=== PATIENT | female | born 1970 | race Caucasian/White ===

== ENCOUNTER 2025-06-06 09:54 | Emergency (ER) | payer OTHER, SELFPAY ==
[2025-06-06 09:55] VITALS: BP 180/89; PULSE 96; RESP 18; TEMP 36.9; O2SAT 100; BMI 31.8
--- NOTE | 2025-06-06 10:10 | EX.ED.UPPERE ---
HPI History of Present Illness Chief Complaint: Upper Extremity Injury Informant: patient Narrative Narrative: [id number] female here increasing right shoulder pain for the last 3 days. Initially started after shutting her barn door. She has had a history of tendinitis of the shoulder and elbow. History of quadriceps rupture bilaterally with repair followed by Dr. Espinosa. Using ibuprofen does help symptoms. However back at work noted continued symptoms and wanted it evaluated. There is no direct traumas. Prior similar symptoms: Yes PFSH PFSH Allergy/AdvReac Type Severity Reaction Status Date / Time No Known Allergies Allergy Verified 06/06/25 09:57 Social History Smoking Status: Never smoker ROS ROS ED Constitutional Constitutional ED: Denies fever(s) Cardiovascular Cardiovascular: Denies chest pain Respiratory/Chest Respiratory/Chest: Denies cough Gastrointestinal Gastrointestinal: Denies diarrhea or vomiting Musculoskeletal Musculoskeletal: Reports none and other Details: Right shoulder pain Integumentary Denies rash or wounds Neurologic Neurologic: Denies weakness EXAM Physical Exam Const Vital Signs: 06/06/25 09:55 Temperature 98.4 F Temperature Source Oral Pulse Rate 96 Respiratory Rate 18 Blood Pressure 180/89 H Blood Pressure Mean 119 Pulse Ox 100 Oxygen Delivery Method Room Air Positive well nourished and well developed General Appearance ED: well developed HEENT normocephalic and atraumatic Eyes General Eye ED: Yes normal appearance of both eyes Neck full ROM Resp normal respiratory effort and normal air movement Cardio regular rate and regular rhythm GI soft to palpation Extremity full ROM Extremity Narrative: Right upper extremity: Negative speeds test. Negative Apley's. Negative empty can. Mild pain with internal rotation against resistance. No pain with external rotation. Soft compartments. No deformities. Neuro oriented x3 Skin no rashes or lesions noted and no wounds MDM MDM MDM Narrative Medical decision making narrative: Interventions / MDM: Differential diagnosis: Rotator cuff strain Diagnosis considered but do not suspect: No clinical dislocation or concerns of fracture. My EKG interpretation: N/A Imaging independently reviewed and interpreted by myself: N/A External documents reviewed: N/A Test considered but not ordered:N/A ED course: Patient nontoxic. Exam consistent with rotator cuff strain of the subscapularis. Negative speeds test, low suspicion for tendinitis. No clinical dislocation or concerns for fracture. She is reassured. She states she will continue ibuprofen. She will follow-up with her orthopedics if needed. All questions were answered. Re-evaluation: stable Disposition discussed with patient/family/significant other: Patient Case discussed with consulting clinician: N/A This note was generated with [employer] dictation software. It may contain incorrect words, spelling, and punctuation that were not noted in checking the note before signing. Discharge Plan Triage Chief Complaint: Upper Extremity Injury ED Provider: Edin Tinsley Dx/Rx/DC Orders Clinical Impression: Strain of rotator cuff of right shoulder, Pain in right shoulder Instructions: ED Shoulder Sprain Primary Care Provider: Sarmad Guzman Activity Restrictions/Additional Instructions: Your exam consistent with rotator cuff strain of your shoulder. More specifically subscapularis. Use exercises as shown. Continue ibuprofen as needed. You may follow-up with your orthopedic team if needed. Print Language: Lao Disposition Disposition: Home, Self Care Discharge Date/Time: 06/06/25 10:30
[2025-06-06 10:21] VITALS: BP 156/90; PULSE 59; RESP 18; TEMP 36.9; O2SAT 100
== END 2025-06-06 10:30 | disposition home or self-care (01) ==
LOC: ED 10:28
PROVIDERS: Emergency Provider Emergency Medicine; PCP Family Medicine; Visit Provider Emergency Medicine
DX: S46.811A Strain of other muscles, fascia and tendons at shoulder and upper arm level, right arm, initial encounter (principal); X58.XXXA Exposure to other specified factors, initial encounter
CPT/HCPCS: 99282